=== PATIENT | male | born 1965 | race Caucasian/White ===

== ENCOUNTER 2017-12-30 19:08 | Inpatient (IN) | payer OTHER ==
[~2017-12-30 19:08] MED LIST: Lidocaine 1% PF 5 ML VIAL ONE; PROPOFOL 200 MG/20 ML VIAL ONE; Succinylcholine Chloride 20 MG/ML 10 ml SYRINGE FS ONE
[2017-12-30] MEDS ORDERED: Pantoprazole 40 MG VIAL ONE (19:27)
[2017-12-30] MEDS ORDERED: Octreotide Acetate 50 MCG/ML AMP ONE (19:27)
[2017-12-30] MEDS ORDERED: Pantoprazole 80 MG, Admixture Fee 1 EACH in Sodium Chloride 0.9% 100 ML IVPB SCH (19:30)
[2017-12-30] MEDS ORDERED: Octreotide Acetate 1,250 MCG in Sodium Chloride 0.9% 250 ML 250 ML IVPB SCH (19:30)
[2017-12-30 19:46] LABS: #Basophils 0.1 thou/uL (0.0-0.2); #Eosinphils 0.3 thou/uL (0.0-0.7); #Lymphocytes 2.9 thou/uL (1.20-3.40); #Monocytes 0.7 thou/uL (0.11-0.59); #Neutrophils 5.2 thou/uL (1.40-6.50); %Basophils 0.9 % (0.0-1.0); %Eosinophils 3.1 % (0.0-10.0); %Lymphocytes 31.2 % (21.0-51.0); %Monocytes 7.8 % (0.0-10.0); %Neutrophils 56.9 % (42.0-75.0); Hemoglobin 13.2 g/dL (14.0-18.0); Mean Corpuscular HGB CONC 35.3 g/dL (32.0-36.0); Mean Corpuscular Hemoglobin 33.5 pg (27.0-31.0); Mean Corpuscular Volume 94.8 fl (80.0-94.0); Mean Platelet Volume 7.7 fL (7.4-10.4); Platelet Count 137 thou/uL (130-400); RBC Distribution Width 13.4 % (11.5-14.5); Red Blood Cell (RBC) Count 3.95 mill/uL (4.70-6.10); White Blood Cell (WBC) Count 9.2 thou/uL (4.8-10.8)
[2017-12-30 19:59] LABS: INR-International Normal Ratio 1.3; PTT 25.8 SEC (22.9-36.1); Prothrombin Time 16.3 SEC (12.0-14.7)
[2017-12-30 20:11] LABS: ALT (SGPT) 18 U/L (8-55); AST (SGOT) 18 U/L (5-34); Albumin 3.4 g/dL (3.5-5.0); Alkaline Phosphatase 85 U/L (40-150); Anion Gap 11 mmol/L (10-20); BUN (Urea Nitrogen) 12 mg/dL (8.4-25.7); Bilirubin, Total 0.7 mg/dL (0.2-1.2); Calc. Creatinine Clearance 0 mL/min (70-130); Calcium 8.2 mg/dL (7.8-10.44); Carbon Dioxide 23 mmol/L (22-29); Chloride 105 mmol/L (98-107); Estimated GFR-MDRD Greater than 90; Globulin 2.1 g/dL (2.4-3.5); Glucose 277 mg/dL (70-105); Lipase 24 U/L (8-78); Potassium 3.6 mmol/L (3.5-5.1); Protein, Total 5.5 g/dL (6.0-8.3); Sodium 135 mmol/L (136-145)
[2017-12-30 20:14] LABS: Troponin I Less than 0.010 ng/mL (< 0.028)
[2017-12-30] MEDS ORDERED: Ethanolamine Oleate 5% 2 ml Ampule ONE ×2 (21:33→21:38)
[2017-12-30] MEDS ORDERED: Ondansetron PF 4 MG/2 ML Vial IVP PRN (21:35)
[2017-12-30] MEDS ORDERED: cefTRIAXone\\ROCEPHIN 1 GM in Sodium Chloride 0.9% 100 ML IVPB SCH (21:45)
[2017-12-30 22:11] LABS: #Basophils 0.1 thou/uL (0.0-0.2); #Eosinphils 0.1 thou/uL (0.0-0.7); #Lymphocytes 1.6 thou/uL (1.20-3.40); #Monocytes 0.8 thou/uL (0.11-0.59); #Neutrophils 9.3 thou/uL (1.40-6.50); %Basophils 0.6 % (0.0-1.0); %Eosinophils 1.2 % (0.0-10.0); %Lymphocytes 13.2 % (21.0-51.0); %Monocytes 7.1 % (0.0-10.0); %Neutrophils 77.9 % (42.0-75.0); Hemoglobin 12.4 g/dL (14.0-18.0); Mean Corpuscular HGB CONC 35.3 g/dL (32.0-36.0); Mean Corpuscular Hemoglobin 33.7 pg (27.0-31.0); Mean Corpuscular Volume 95.2 fl (80.0-94.0); Mean Platelet Volume 7.7 fL (7.4-10.4); Platelet Count 135 thou/uL (130-400); RBC Distribution Width 13.6 % (11.5-14.5); Red Blood Cell (RBC) Count 3.68 mill/uL (4.70-6.10); White Blood Cell (WBC) Count 11.9 thou/uL (4.8-10.8)
[2017-12-30 22:29] VITALS: BMI 21.3
[2017-12-30] MEDS ORDERED: Midazolam HCl 2 mg/2 ml Vial ONE (22:32)
[2017-12-30] MEDS ORDERED: Fentanyl 100 MCG/2 ML VIAL ONE (22:32)
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
[2017-12-30] MEDS: Sodium Chloride 0.9% 1,000 ML IV SCH (23:37)
[2017-12-30] MEDS: cefTRIAXone\\ROCEPHIN 1 GM, Syringe 0.4 ML in Sterile Water 9.6 ML SLOW IVP SCH (23:37)
[2017-12-30 23:51] LABS: Hemoglobin 10.8 g/dL (14.0-18.0)
--- NOTE | 2017-12-31 01:33 | CON ---
DATE OF CONSULTATION: 12/30/2017 REASON FOR CONSULTATION: Hematemesis. CONSULTING PHYSICIAN: Dr. Shepard. HISTORY OF PRESENT ILLNESS: The patient is a 52-year-old male with past medical history of hypertens ion, anxiety, diabetes, chronic viral hepatitis C genotype 1A, status post Harvoni and SVR, and cirrh osis complicated by esophageal varices, presenting with complaints of hematemesis. He states that he was in his usual state of health until earlier this evening when he, after finishing dinner, experie nced increased gastrointestinal upset and nausea. He subsequently went to the bathroom and threw up the remainder of his dinner plus gross blood. He immediately contacted EMS and was transferred to [facility] for evaluation. While in the emergency department, he had a further episode of fra nk blood emesis of approximately 5011-0511 mL of deepika blood. No other associated symptoms; however, he did endorse the appearance of bright red blood per rectum approximately 3 days ago, but he does e ndorse a history of hemorrhoids as well. On palpation of the anal orifice itself, he also noticed th at there was a bulge. He has not had any further bleeding since. He also endorses a solid black sto ol approximately 3 months ago, but that also did not recur. Upon review of the patient's chart, he was noted to have an upper GI bleed in late 2014 and underwent upper endoscopy with varices seen at that time. He was subsequently placed on nadolol as part of pr imary prophylaxis for variceal bleeding and was stable on this dose until approximately 8 months ago when he stopped this medication. Currently, denies any nausea, fevers, chills, abdominal pain, melen a, hematochezia, odynophagia, or dysphagia. REVIEW OF SYSTEMS: A 10-category review of systems was obtained with all responses negative except f or the pertinent positives as listed in the HPI. PAST MEDICAL HISTORY: As per HPI. PAST SURGICAL HISTORY: Right lower extremity ambzu-bkq-jwjl amputation. FAMILY HISTORY: Breast cancer (sister). SOCIAL HISTORY: He smokes approximately 1-2 packs per day. He is drinking approximately 2-3 beers 1 2 ounce beers weekly and has been occasionally using marijuana and CBD oil (cannabis extract). OUTPATIENT MEDICATIONS: None. ALLERGIES: No known drug allergies. PHYSICAL EXAMINATION: VITAL SIGNS: Pulse 99, blood pressure 126/70, respiratory rate 16, satting 99% on room air. GENERAL: The patient is lying in bed comfortably in no acute distress. Alert and oriented x4. NECK: Supple. No JVD noted. CARDIOVASCULAR: Regular rate and rhythm with slightly tachycardic rate. No discernible murmurs, gal lops, or rubs. RESPIRATORY: Clear to auscultation bilaterally with no wheezes or rales. ABDOMEN: Normoactive bowel sounds, soft, nondistended. Mild tenderness to palpation in the right lo wer quadrant. EXTREMITIES: Right lower extremity msvjs-hxt-ebbo amputation noted. No cyanosis, clubbing, or edema . LABORATORY DATA: CBC with a white blood cell count of 9.2, hemoglobin 13.2, hematocrit 37.4, platele ts 137. Chemistry with a sodium of 135, potassium 3.6, chloride 105, CO2 of 23, BUN 12, creatinine 0 .86, glucose 277, AST 18, ALT 18, alkaline phosphatase 85, total bilirubin 0.7, lipase 24. INR 1.3. MELD score calculated at 13. IMAGING STUDIES: No current GI imaging studies are available for review. ASSESSMENT AND PLAN: The patient is a 52-year-old male with past medical history of hypertension, an xiety, diabetes, chronic hepatitis C infection now status post treatment, and cirrhosis complicated b y esophageal varices, presenting with hematemesis. Hematemesis. The patient presenting with acute onset of deepika blood emesis with approximately 1500-2 000 mL of gross blood observed while in the ED. Given his history of cirrhosis, this is strongly con cerning for esophageal varix bleed. He had been on primary prophylaxis for variceal bleeding with na dolol 10 mg daily in the past, but subsequently stopped this 8 months ago due to not wanting to take the medication anymore. Currently, hemodynamically stable with borderline tachycardia and normotensi ve pressure. H and H is decreased from baseline, but also relatively stable comparatively. At this time, differential could include esophageal varix bleed, arteriovenous malfunction/Dieulafoy lesion, esophagitis, portal hypertensive gastropathy (unlikely), and/or malignancy (highly unlikely). RECOMMENDATIONS: 1. We would continue to trend H and H and transfuse as necessary to maintain an H and H of 7/21. 2. Agree with placement of patient on PPI and octreotide drips given upper active gastrointestinal b leeding. 3. We would place the patient on ceftriaxone 1 gram daily for antibiotic prophylaxis regarding upper gastrointestinal bleeding in the cirrhotic patient. 4. We would keep patient n.p.o. for now with urgent endoscopy later on this evening. We will continue to follow. Please call with any questions.
--- NOTE | 2017-12-31 02:14 | OP ---
DATE OF PROCEDURE: 12/30/2017 PROCEDURE: Esophagogastroduodenoscopy with band ligation. INDICATION: Hematemesis, cirrhosis with history of esophageal varices. DESCRIPTION OF PROCEDURE: After the risks and benefits of the procedure were explained to the patien t including risks of bleeding, infection, perforation, reactions to anesthesia and/or pain. Informed consent was obtained. The patient was then taken to the endoscopy suite where general anesthesia wa s administered via anesthesia support. The standard gastroscope was then advanced into the mouth wit h intubation of the esophagus, stomach and proximal small intestine with the findings listed below. The patient tolerated the procedure well with no immediate perioperative complications. FINDINGS: Duodenum: Normal appearing mucosa was seen in both the duodenal bulb and second portion of the duode num. There was no evidence of erosions, ulcerations, or mass lesions or active/recent bleeding. Stomach: A large amount of both clotted blood and retained food was seen in the gastric fundus and b josefina significantly limiting visualization of the gastric mucosa. Normal-appearing mucosa was seen in the distal body, antrum and incisura of the mucosa seen. There was no evidence of erosions, ulcerati ons, mass lesions or active/recent bleeding. The GE junction was obscured upon gastric retroflexion, so evaluation of gastric varices could not be made at this time. Esophagus: Normal-appearing mucosa was seen in the proximal and mid esophagus, large esophageal vari monet were seen in the distal esophagus with a fibrin clot with an adherent clot on top of it noted in the distal esophagus just proximal to the GE junction. There was no evidence of erosions, ulceration s, mass lesions or active bleeding at this site. With this being the most likely source of his hemat emesis, the gastroscope was then withdrawn from the patient and a Arcamed dairy hand was affixe d to the scope. The gastroscope was then advanced into the mouth with reintubation of the esophagus. Band ligation x4 was then performed in the distal esophagus including the fibrin clot with good hem ostasis achieved. There was no increase in bleeding post-procedure with all equipment removed at hayden t time. IMPRESSION: 1. Large esophageal varices seen in the distal esophagus with the presence of a small adherent clot overlying one of them being the most likely reason for his recent hematemesis, now status post band l igation x4. 2. Large amount of both clotted blood and retained food was seen in the gastric fundus and body sign ificantly limiting visualization of the gastric mucosa. Further sources of bleeding cannot be ruled out at this time in this particular location. 3. Incomplete visualization of the GE junction on retroflexion. Gastric varix determination cannot be performed at this time. RECOMMENDATIONS: 1. We transfer the patient to the ICU for continued monitoring for further episodes of hematemesis/G I bleeding. 2. We would continue to trend H&H and transfuse as necessary to maintain an H&H of 06/13. 3. We would continue PPI drip for the next 24 hours, then can transfer to 40 mg IV b.i.d. 4. We would continue the octreotide drip for a total duration of therapy of 72 hours. 5. W would keep patient n.p.o. for now with advancing patient to clear liquid diet if no further epi sodes of hematemesis and H&H is stable. 6. We would continue ceftriaxone 1 gram daily as part of prophylaxis for the patient with GI bleedin g and underlying comorbidities including cirrhosis. 7. Once hemodynamically stable, we would start patient on nadolol 10 mg daily as part of secondary p rophylaxis for variceal bleeding.
[2017-12-31] MEDS: Pantoprazole 80 MG in Sodium Chloride 0.9% 100 ML IVP SCH ×2 (02:18→17:14)
[2017-12-31 05:30] LABS: INR-International Normal Ratio 1.3; PTT 26.7 SEC (22.9-36.1); Prothrombin Time 16.2 SEC (12.0-14.7)
[2017-12-31 05:38] LABS: ALT (SGPT) 23 U/L (8-55); AST (SGOT) 20 U/L (5-34); Albumin 3.3 g/dL (3.5-5.0); Alkaline Phosphatase 63 U/L (40-150); Bilirubin, Direct 0.4 mg/dL (0.1-0.3); Bilirubin, Total 0.7 mg/dL (0.2-1.2); Protein, Total 5.1 g/dL (6.0-8.3)
[2017-12-31 05:40] LABS: Anion Gap 7 mmol/L (10-20); BUN (Urea Nitrogen) 11 mg/dL (8.4-25.7); Calc. Creatinine Clearance 104 mL/min (70-130); Calcium 7.5 mg/dL (7.8-10.44); Carbon Dioxide 23 mmol/L (22-29); Chloride 110 mmol/L (98-107); Estimated GFR-MDRD Greater than 90; Glucose 220 mg/dL (70-105); Potassium 4.3 mmol/L (3.5-5.1); Sodium 136 mmol/L (136-145)
[2017-12-31 05:56] LABS: #Eosinphils 0.1 thou/uL (0.0-0.7); #Lymphocytes 1.3 thou/uL (1.20-3.40); #Monocytes 0.5 thou/uL (0.11-0.59); #Neutrophils 7.7 thou/uL (1.40-6.50); %Basophils 0.1 % (0.0-1.0); %Eosinophils 0.7 % (0.0-10.0); %Lymphocytes 13.3 % (21.0-51.0); %Monocytes 4.9 % (0.0-10.0); Hemoglobin 10.9 g/dL (14.0-18.0); Mean Corpuscular HGB CONC 35.6 g/dL (32.0-36.0); Mean Corpuscular Hemoglobin 33.8 pg (27.0-31.0); Mean Corpuscular Volume 94.7 fl (80.0-94.0); Mean Platelet Volume 8.1 fL (7.4-10.4); PLT Morphology Comment Appears Decreased; Platelet Count 101 thou/uL (130-400); RBC Distribution Width 13.6 % (11.5-14.5); Red Blood Cell (RBC) Count 3.24 mill/uL (4.70-6.10); White Blood Cell (WBC) Count 9.5 thou/uL (4.8-10.8)
[2017-12-31] MEDS: Sodium Chloride 0.9% 1,000 ML IV SCH ×2 (08:05→17:14)
[2017-12-31] MEDS ORDERED: FLU VACC QS2017-18 36 mo. & older 0.5 ML SYRINGE IM ONE (09:00)
[2017-12-31 10:22] LABS: #Eosinphils 0.1 thou/uL (0.0-0.7); #Lymphocytes 1.5 thou/uL (1.20-3.40); #Monocytes 0.5 thou/uL (0.11-0.59); #Neutrophils 5.4 thou/uL (1.40-6.50); %Basophils 0.3 % (0.0-1.0); %Eosinophils 0.8 % (0.0-10.0); %Lymphocytes 19.8 % (21.0-51.0); %Monocytes 6.7 % (0.0-10.0); %Neutrophils 72.3 % (42.0-75.0); Hemoglobin 10.8 g/dL (14.0-18.0); Mean Corpuscular HGB CONC 35.3 g/dL (32.0-36.0); Mean Corpuscular Hemoglobin 33.7 pg (27.0-31.0); Mean Corpuscular Volume 95.3 fl (80.0-94.0); Mean Platelet Volume 7.8 fL (7.4-10.4); Platelet Count 91 thou/uL (130-400); RBC Distribution Width 13.8 % (11.5-14.5); Red Blood Cell (RBC) Count 3.21 mill/uL (4.70-6.10); White Blood Cell (WBC) Count 7.5 thou/uL (4.8-10.8)
--- NOTE | 2017-12-31 11:34 | PDOC.PN ---
- Subjective Encounter Start Date: 12/31/17 Encounter Start Time: 10:55 -: old records requested/rev Pt seen and examined chart reviewed in its entirety. This is my first visit with this patient Pt for EGD earlier, notes pending. no further bloody BM or vomiting since. Still NPO, awaiting GI recommendations. On protonix and Octreotide drips still. No F/C, no N/v/D/C at present, no CP or SOB 10 point ROS performed and neg for all systems except as per HPI - Objective Resuscitation Status: Resuscitation Status FULL:Full Resuscitation MAR Reviewed: Yes Vital Signs & Weight: Vital Signs (12 hours) Temp Pulse Resp BP Pulse Ox 12/31/17 11:26 99.0 F 88 19 119/85 97 12/31/17 08:00 99.0 F 95 16 97 12/31/17 07:00 99.0 F 95 16 129/84 97 12/31/17 06:40 96 18 129/84 98 12/31/17 03:00 98.4 F Weight Weight 144 lb 6.444 oz Most Recent Monitor Data Heart Rate from ECG 91 NIBP 133/91 NIBP BP-Mean 104 Respiration from ECG 21 SpO2 97 I&O: 12/30/17 12/31/17 01/01/18 06:59 06:59 06:59 Intake Total 717 Output Total 850 Balance -133 Result Diagrams: 12/31/17 09:43 12/31/17 04:55 Radiology Reviewed by me: Yes EKG Reviewed by me: Yes Phys Exam - Physical Examination Constitutional: NAD HEENT: PERRLA, moist MMs, sclera anicteric, oral pharynx no lesions Neck: no nodes, no JVD, supple, full ROM Respiratory: no wheezing, no rales, no rhonchi, clear to auscultation bilateral Cardiovascular: RRR, no significant murmur, no rub Gastrointestinal: soft, non-tender, no distention, positive bowel sounds Musculoskeletal: no edema, pulses present Neurological: non-focal, normal sensation, moves all 4 limbs Lymphatic: no nodes Psychiatric: normal affect, A&O x 3 Skin: no rash, normal turgor, cap refill <2 seconds Dx/Plan - Plan cont current plan of care, DVT proph w/SCDs * . follow up on GI recs, watch h/H, feed when okay with GI, stop drips when okay with GI
[2017-12-31 15:41] LABS: #Eosinphils 0.1 thou/uL (0.0-0.7); #Lymphocytes 1.8 thou/uL (1.20-3.40); #Monocytes 0.6 thou/uL (0.11-0.59); #Neutrophils 4.4 thou/uL (1.40-6.50); %Basophils 0.4 % (0.0-1.0); %Eosinophils 1.9 % (0.0-10.0); %Lymphocytes 25.7 % (21.0-51.0); %Monocytes 8.9 % (0.0-10.0); %Neutrophils 63.2 % (42.0-75.0); Hemoglobin 10.5 g/dL (14.0-18.0); Mean Corpuscular HGB CONC 35.7 g/dL (32.0-36.0); Mean Corpuscular Hemoglobin 34.1 pg (27.0-31.0); Mean Corpuscular Volume 95.4 fl (80.0-94.0); Mean Platelet Volume 7.2 fL (7.4-10.4); Platelet Count 84 thou/uL (130-400); RBC Distribution Width 13.6 % (11.5-14.5); Red Blood Cell (RBC) Count 3.09 mill/uL (4.70-6.10); White Blood Cell (WBC) Count 6.9 thou/uL (4.8-10.8)
[2017-12-31] MEDS: Octreotide Acetate 1,250 MCG in Sodium Chloride 0.9% 250 ML 250 ML IVPB SCH (17:13)
--- NOTE | 2017-12-31 17:45 | PRG ---
DATE OF SERVICE: 12/31/2017 SUBJECTIVE: Mr. Moss has had an uneventful day today. His last bowel movement was early yesterday morning soon after his upper endoscopy. He has passed no melena or hematochezia. He has no abdominal pain or chest pain. He has a little bit of a sore throat. He just started on clear liquid diet and he is tolerating this well. He has remained hemodynamically stable, continuing on the octreotide drip. OBJECTIVE: VITAL SIGNS: Temperature 98.0, pulse 83, blood pressure 138/89, 98% oxygen saturation on room air. GENERAL: No acute distress. HEART: Regular rate and rhythm. LUNGS: Clear to auscultation bilaterally. ABDOMEN: Soft and nontender to palpation. EXTREMITIES: No peripheral edema. LABORATORY STUDIES: Sodium 136, potassium 4.3, BUN 11, creatinine 0.77, glucose 220. Total bilirubin 0.7, alkaline phosphatase 63, AST 20, ALT 23, albumin 3.3. INR 1.3. WBC 6.9; hemoglobin 10.5, stable from last night; platelets 84. ASSESSMENT AND PLAN: 1. Esophageal varices with hemorrhage, status post esophagogastroduodenoscopy with variceal band ligation last night on 12/30/[address] Tinoco. 2. Acute blood loss anemia, stabilized. 3. Portal hypertension. 4. Cirrhosis secondary to alcohol use. 5. History of hepatitis C, successfully treated with SVR back in 2015. There has been no further evidence of overt bleeding since his upper endoscopy yesterday. Standard of care would be to continue the octreotide drip for 72 hours following EGD, which would be through early Friday morning. Advance diet to full liquids tonight, and if doing well with no further evidence of bleeding tomorrow, his diet could be advanced further as tolerated. He will need to be discharged back on a nonselective beta willy such as nadolol, as he had been off this for several months. This will be secondary prophylaxis against bleeding. We will also need to arrange for repeat EGD in 2-3 weeks with repeat variceal banding and have repeated sessions until varices have been banded to obliteration. I would keep him on the antibiotics while he is in the hospital. Protonix can be switched to 40 mg IV b.i.d. while in the hospital. MTDD
[2017-12-31 21:35] LABS: #Eosinphils 0.1 thou/uL (0.0-0.7); #Lymphocytes 1.6 thou/uL (1.20-3.40); #Monocytes 0.6 thou/uL (0.11-0.59); #Neutrophils 3.7 thou/uL (1.40-6.50); %Basophils 0.5 % (0.0-1.0); %Eosinophils 2.2 % (0.0-10.0); %Lymphocytes 26.9 % (21.0-51.0); %Monocytes 9.6 % (0.0-10.0); %Neutrophils 60.8 % (42.0-75.0); Mean Corpuscular HGB CONC 34.8 g/dL (32.0-36.0); Mean Corpuscular Hemoglobin 33.2 pg (27.0-31.0); Mean Corpuscular Volume 95.5 fl (80.0-94.0); Mean Platelet Volume 7.5 fL (7.4-10.4); Platelet Count 82 thou/uL (130-400); RBC Distribution Width 13.6 % (11.5-14.5); Red Blood Cell (RBC) Count 3.01 mill/uL (4.70-6.10); White Blood Cell (WBC) Count 6.1 thou/uL (4.8-10.8)
[2018-01-01] MEDS: cefTRIAXone\\ROCEPHIN 1 GM, Syringe 0.4 ML in Sterile Water 9.6 ML SLOW IVP SCH ×2 (00:14→23:25)
[2018-01-01] MEDS: Pantoprazole 80 MG in Sodium Chloride 0.9% 100 ML IVP SCH (01:13)
[2018-01-01] MEDS: Sodium Chloride 0.9% 1,000 ML IV SCH ×2 (03:34→17:28)
[2018-01-01 05:52] LABS: #Eosinphils 0.1 thou/uL (0.0-0.7); #Lymphocytes 1.1 thou/uL (1.20-3.40); #Monocytes 0.5 thou/uL (0.11-0.59); #Neutrophils 3.4 thou/uL (1.40-6.50); %Basophils 0.9 % (0.0-1.0); %Eosinophils 2.8 % (0.0-10.0); %Lymphocytes 21.7 % (21.0-51.0); %Monocytes 9.4 % (0.0-10.0); %Neutrophils 65.3 % (42.0-75.0); Hemoglobin 10.1 g/dL (14.0-18.0); Mean Corpuscular HGB CONC 35.4 g/dL (32.0-36.0); Mean Corpuscular Hemoglobin 33.7 pg (27.0-31.0); Mean Corpuscular Volume 95.1 fl (80.0-94.0); Mean Platelet Volume 7.9 fL (7.4-10.4); Platelet Count 83 thou/uL (130-400); RBC Distribution Width 13.7 % (11.5-14.5); Red Blood Cell (RBC) Count 3.01 mill/uL (4.70-6.10); White Blood Cell (WBC) Count 5.1 thou/uL (4.8-10.8)
[2018-01-01 06:04] LABS: Anion Gap 9 mmol/L (10-20); BUN (Urea Nitrogen) 6 mg/dL (8.4-25.7); Calc. Creatinine Clearance 108 mL/min (70-130); Calcium 7.8 mg/dL (7.8-10.44); Carbon Dioxide 24 mmol/L (22-29); Chloride 109 mmol/L (98-107); Estimated GFR-MDRD Greater than 90; Glucose 170 mg/dL (70-105); Magnesium 1.8 mg/dL (1.6-2.6); Potassium 3.8 mmol/L (3.5-5.1); Sodium 138 mmol/L (136-145)
[2018-01-01 10:03] LABS: #Eosinphils 0.1 thou/uL (0.0-0.7); #Lymphocytes 1.1 thou/uL (1.20-3.40); #Monocytes 0.5 thou/uL (0.11-0.59); #Neutrophils 3.7 thou/uL (1.40-6.50); %Basophils 0.4 % (0.0-1.0); %Eosinophils 2.6 % (0.0-10.0); %Lymphocytes 19.7 % (21.0-51.0); %Monocytes 8.9 % (0.0-10.0); %Neutrophils 68.5 % (42.0-75.0); Hemoglobin 10.2 g/dL (14.0-18.0); Mean Corpuscular HGB CONC 35.7 g/dL (32.0-36.0); Mean Corpuscular Volume 95.1 fl (80.0-94.0); Mean Platelet Volume 7.3 fL (7.4-10.4); Platelet Count 75 thou/uL (130-400); RBC Distribution Width 13.7 % (11.5-14.5); Red Blood Cell (RBC) Count 2.99 mill/uL (4.70-6.10); White Blood Cell (WBC) Count 5.4 thou/uL (4.8-10.8)
[2018-01-01] MEDS ORDERED: Pantoprazole 40 MG VIAL IVP SCH (10:30)
--- NOTE | 2018-01-01 11:51 | PRG ---
DATE OF SERVICE: 01/01/2018 SUBJECTIVE: Mr. Moss is doing fine. He is now eating a regular diet for lunch and is tolerating t his without complaint. No bowel movements over the past day. Certainly, no melena. Hemoglobin is s table. He has been hemodynamically stable. OBJECTIVE: VITAL SIGNS: Temperature 97.7, pulse 81, blood pressure 139/74, 98% oxygen saturation on room air. GENERAL: No acute distress, lying in bed comfortably, eating lunch. HEART: Regular rate and rhythm. LUNGS: Clear to auscultation bilaterally. ABDOMEN: Soft and nontender to palpation. EXTREMITIES: No peripheral edema. LABORATORY STUDIES: Hemoglobin stable at 10.2, WBC 5.4, platelets 75,000. Sodium 138, potassium 3.8 , BUN down to 6, creatinine 0.74. ASSESSMENT AND PLAN: 1. Esophageal varices with hemorrhage, status post banding [address] Tinoco. 2. Portal hypertension. 3. Cirrhosis secondary to alcohol. 4. Acute blood loss anemia, stable. Continue with the octreotide drip through Friday morning. He is advancing his diet well. Okay to transfer to a general medical floor from a GI perspective. Aga in, upon discharge, he needs to be restarted back on a nonselective beta willy.
--- NOTE | 2018-01-01 12:12 | PDOC.PN ---
- Subjective Encounter Start Date: 01/01/18 Encounter Start Time: 10:20 Pt without fiurther bleeding since EGD and banding. GI wantws to stay on Octreotide for 72 hour post EGD - until early AM 01/03. No F/c, no n/V/D/c, no CP or sOB ricardo diet, to advanc eper GI. Will transition to IV protoinix q 12 off of drip 12 point ROs performed aned neg for all systems except as per HPI - Objective Resuscitation Status: Resuscitation Status FULL:Full Resuscitation MAR Reviewed: Yes Vital Signs & Weight: Vital Signs (12 hours) Temp Pulse Resp BP BP Pulse Ox 01/01/18 07:54 97.7 F 81 16 98 01/01/18 07:50 97.7 F 81 16 139/74 98 01/01/18 03:35 98.2 F 80 18 122/82 98 Weight Weight 144 lb 6.444 oz Most Recent Monitor Data Heart Rate from ECG 91 NIBP 133/91 NIBP BP-Mean 104 Respiration from ECG 21 SpO2 97 I&O: 12/31/17 01/01/18 01/02/18 06:59 06:59 06:59 Intake Total 717 2410 Output Total 850 2925 800 Balance -133 -515 -800 Result Diagrams: 01/01/18 09:41 01/01/18 05:07 EKG Reviewed by me: Yes Phys Exam - Physical Examination Constitutional: NAD HEENT: PERRLA, moist MMs, sclera anicteric, oral pharynx no lesions Neck: no nodes, no JVD, supple, full ROM Respiratory: no wheezing, no rales, no rhonchi, clear to auscultation bilateral Cardiovascular: RRR, no significant murmur, no rub Gastrointestinal: soft, non-tender, no distention, positive bowel sounds Musculoskeletal: no edema, pulses present Neurological: non-focal, normal sensation, moves all 4 limbs Lymphatic: no nodes Psychiatric: normal affect, A&O x 3 Skin: no rash, normal turgor, cap refill <2 seconds Dx/Plan - Plan cont current plan of care, out of bed/ambulate * .
[2018-01-01 15:54] LABS: #Eosinphils 0.1 thou/uL (0.0-0.7); #Lymphocytes 1.2 thou/uL (1.20-3.40); #Monocytes 0.6 thou/uL (0.11-0.59); %Basophils 0.6 % (0.0-1.0); %Eosinophils 2.5 % (0.0-10.0); %Lymphocytes 20.4 % (21.0-51.0); %Neutrophils 66.6 % (42.0-75.0); Mean Corpuscular HGB CONC 35.9 g/dL (32.0-36.0); Mean Corpuscular Hemoglobin 34.1 pg (27.0-31.0); Mean Corpuscular Volume 94.8 fl (80.0-94.0); Mean Platelet Volume 7.7 fL (7.4-10.4); Platelet Count 81 thou/uL (130-400); RBC Distribution Width 13.5 % (11.5-14.5); Red Blood Cell (RBC) Count 2.95 mill/uL (4.70-6.10); White Blood Cell (WBC) Count 5.9 thou/uL (4.8-10.8)
[2018-01-01] MEDS: Pantoprazole 40 MG VIAL IVP SCH (20:03)
[2018-01-01 21:55] LABS: #Eosinphils 0.2 thou/uL (0.0-0.7); #Lymphocytes 1.3 thou/uL (1.20-3.40); #Monocytes 0.7 thou/uL (0.11-0.59); #Neutrophils 4.5 thou/uL (1.40-6.50); %Basophils 0.7 % (0.0-1.0); %Eosinophils 2.5 % (0.0-10.0); %Lymphocytes 19.4 % (21.0-51.0); %Monocytes 9.8 % (0.0-10.0); %Neutrophils 67.6 % (42.0-75.0); Hemoglobin 10.4 g/dL (14.0-18.0); Mean Corpuscular HGB CONC 35.5 g/dL (32.0-36.0); Mean Corpuscular Hemoglobin 33.5 pg (27.0-31.0); Mean Corpuscular Volume 94.4 fl (80.0-94.0); Mean Platelet Volume 7.1 fL (7.4-10.4); Platelet Count 89 thou/uL (130-400); RBC Distribution Width 13.4 % (11.5-14.5); Red Blood Cell (RBC) Count 3.09 mill/uL (4.70-6.10); White Blood Cell (WBC) Count 6.7 thou/uL (4.8-10.8)
[2018-01-02] MEDS: Sodium Chloride 0.9% 1,000 ML IV SCH ×3 (02:59→21:05)
[2018-01-02 04:37] LABS: #Eosinphils 0.1 thou/uL (0.0-0.7); #Monocytes 0.4 thou/uL (0.11-0.59); #Neutrophils 2.4 thou/uL (1.40-6.50); %Basophils 0.7 % (0.0-1.0); %Eosinophils 3.2 % (0.0-10.0); %Lymphocytes 25.6 % (21.0-51.0); %Monocytes 10.5 % (0.0-10.0); Hemoglobin 9.3 g/dL (14.0-18.0); Mean Corpuscular Hemoglobin 33.9 pg (27.0-31.0); Mean Corpuscular Volume 94.2 fl (80.0-94.0); Mean Platelet Volume 7.7 fL (7.4-10.4); Platelet Count 71 thou/uL (130-400); RBC Distribution Width 13.4 % (11.5-14.5); Red Blood Cell (RBC) Count 2.74 mill/uL (4.70-6.10)
[2018-01-02 04:50] LABS: Anion Gap 8 mmol/L (10-20); BUN (Urea Nitrogen) 7 mg/dL (8.4-25.7); Calc. Creatinine Clearance 96 mL/min (70-130); Calcium 7.9 mg/dL (7.8-10.44); Carbon Dioxide 27 mmol/L (22-29); Chloride 108 mmol/L (98-107); Estimated GFR-MDRD Greater than 90; Glucose 188 mg/dL (70-105); Magnesium 1.7 mg/dL (1.6-2.6); Potassium 3.8 mmol/L (3.5-5.1); Sodium 139 mmol/L (136-145)
--- NOTE | 2018-01-02 08:50 | PRG ---
DATE OF SERVICE: 01/01/2018 GASTROINTESTINAL INPATIENT DAILY PROGRESS NOTE SUBJECTIVE: Mr. Moss has had an uneventful day and night. No bowel movement, but he is passing ga s. He is not nauseated. There is no abdominal pain, no evidence of recurrent bleeding. He has been hemodynamically stable. Continues on the octreotide drip. OBJECTIVE: VITAL SIGNS: Temperature 98.3, pulse 88, blood pressure 143/80, 100% oxygen saturation on room air. GENERAL: No acute distress. HEART: Regular rate and rhythm. LUNGS: Clear to auscultation bilaterally. ABDOMEN: Soft, nontender. EXTREMITIES: No peripheral edema. LABORATORY STUDIES: Sodium 139, potassium 3.8, BUN 7, creatinine 0.83. WBC 4.0, hemoglobin 9.3, randolph telets 71. ASSESSMENT AND PLAN: 1. Esophageal variceal hemorrhage, status post banding [address] Tinoco. 2. Portal hypertension. 3. Cirrhosis secondary to alcohol. 4. Acute blood loss anemia, stable. There has been no further evidence of bleeding since his EGD. Continue with octreotide drip through tomorrow morning. He is tolerating his diet. Anticipate if he is still doing well tomorrow morning with no further evidence of bleeding, he could potentially be discharged home. He does need to be re started back on a nonselective beta willy on discharge. I will plan to follow up with him in the n ext 2-3 weeks for repeat EGD with variceal banding.
[2018-01-02] MEDS: Octreotide Acetate 1,250 MCG in Sodium Chloride 0.9% 250 ML 250 ML IVPB SCH (09:08)
[2018-01-02] MEDS: Pantoprazole 40 MG VIAL IVP SCH ×2 (09:08→21:11)
--- NOTE | 2018-01-02 14:01 | PDOC.PN ---
- Subjective Encounter Start Date: 01/02/18 Encounter Start Time: 08:45 no [id number], butno BM since EGD. No F/C, no N/V/d/C. on octreotide until tomorrow AM, plan to discharge tomorrow. GI following. 10 point ROS performed and neg for all except as per HPI - Objective Resuscitation Status: Resuscitation Status FULL:Full Resuscitation MAR Reviewed: Yes Vital Signs & Weight: Vital Signs (12 hours) Temp Pulse Resp BP BP Pulse Ox 01/02/18 11:20 98.3 F 78 18 123/75 99 01/02/18 07:20 98.3 F 88 18 01/02/18 04:19 98.3 F 88 18 143/80 H 100 01/02/18 03:57 98.3 F 82 18 139/89 97 Weight Weight 144 lb 6.444 oz Most Recent Monitor Data Heart Rate from ECG 91 NIBP 133/91 NIBP BP-Mean 104 Respiration from ECG 21 SpO2 97 I&O: 01/01/18 01/02/18 01/03/18 06:59 06:59 06:59 Intake Total 2410 4179 Output Total 2925 3300 Balance -515 879 Result Diagrams: 01/02/18 03:58 01/02/18 03:58 Phys Exam - Physical Examination Constitutional: NAD HEENT: PERRLA, moist MMs, sclera anicteric, oral pharynx no lesions Neck: no nodes, no JVD, supple, full ROM Respiratory: no wheezing, no rales, no rhonchi, clear to auscultation bilateral Cardiovascular: RRR, no significant murmur, no rub Gastrointestinal: soft, non-tender, no distention, positive bowel sounds Musculoskeletal: no edema, pulses present Neurological: non-focal, normal sensation, moves all 4 limbs Lymphatic: no nodes Psychiatric: normal affect, A&O x 3 Skin: no rash, normal turgor, cap refill <2 seconds Dx/Plan (1) Esophageal varices in cirrhosis Code(s): K74.60 - UNSPECIFIED CIRRHOSIS OF LIVER; I85.10 - SECONDARY ESOPHAGEAL VARICES WITHOUT BLEEDING Status: Acute (2) Acute upper GI bleeding Code(s): K92.2 - GASTROINTESTINAL HEMORRHAGE, UNSPECIFIED Status: Acute (3) Acute blood loss anemia Code(s): D62 - ACUTE POSTHEMORRHAGIC ANEMIA Status: Acute (4) Cirrhosis Code(s): K74.60 - UNSPECIFIED CIRRHOSIS OF LIVER Status: Acute (5) Hepatitis C Code(s): B19.20 - UNSPECIFIED VIRAL HEPATITIS C WITHOUT HEPATIC COMA Status: Acute (6) Alcohol abuse Code(s): F10.10 - ALCOHOL ABUSE, UNCOMPLICATED Status: Acute - Plan * . joaquin de octreotide until tomorrow AM, plan to discharge tomorrow. AM CBC ordered
[2018-01-02] MEDS: cefTRIAXone\\ROCEPHIN 1 GM, Syringe 0.4 ML in Sterile Water 9.6 ML SLOW IVP SCH (23:12)
[2018-01-03] MEDS: Sodium Chloride 0.9% 1,000 ML IV SCH (05:44)
[2018-01-03 05:54] LABS: #Eosinphils 0.1 thou/uL (0.0-0.7); #Lymphocytes 0.9 thou/uL (1.20-3.40); #Monocytes 0.4 thou/uL (0.11-0.59); #Neutrophils 2.4 thou/uL (1.40-6.50); %Basophils 0.5 % (0.0-1.0); %Monocytes 11.3 % (0.0-10.0); %Neutrophils 61.3 % (42.0-75.0); Hemoglobin 9.6 g/dL (14.0-18.0); Mean Corpuscular Hemoglobin 34.3 pg (27.0-31.0); Mean Corpuscular Volume 95.4 fl (80.0-94.0); Mean Platelet Volume 7.6 fL (7.4-10.4); Platelet Count 85 thou/uL (130-400); RBC Distribution Width 13.7 % (11.5-14.5); White Blood Cell (WBC) Count 3.9 thou/uL (4.8-10.8)
[2018-01-03] MEDS: Pantoprazole 40 MG VIAL IVP SCH (09:27)
[2018-01-03] MEDS ORDERED: Nadolol 40 MG TAB PO SCH (10:15)
[2018-01-03 11:44] VITALS: BP 154/91; TEMP 98.2
--- NOTE | 2018-01-05 09:51 | DIS ---
DATE OF ADMISSION: 12/30/2017 DATE OF DISCHARGE: 01/03/2018 DISCHARGE DIAGNOSES: 1. Upper gastrointestinal bleed. 2. Acute blood loss anemia. 3. Cirrhosis. 4. Esophageal varices. 5. Hepatitis C. 6. Ongoing alcohol abuse. CONSULTATIONS: Gastroenterology, Dr. Rodriguez Burciaga and Dr. Eloy Tinoco. PROCEDURES: EGD by Dr. Tinoco on 12/30/2017. HISTORY AND PHYSICAL: Mr. Moss is a 52-year-old gentleman with the above history who presented to the emergency department on the day of admission for complaints of GI bleeding and vomiting blood. Workup in the emergency department showed hemoglobin of 13.2, but did have known varices. We subsequently called for admit. HOSPITAL COURSE: Patient was seen and examined by Dr. Sharma and placed in inpatient status to the ICU. GI was consulted and the patient was started on octreotide and Protonix. The patient was seen by Gastroenterology and scheduled for EGD the same night. He did go for EGD, which shows large esophageal varices in the distal esophagus with the presence of a small adherent clot likely the source and status post band ligation x4. The patient had no further bleeding during the stay. After 72 hours of octreotide, he had no further bleeding. His H and H were stable. He was stable for discharge out of the hospital. The patient was seen and examined on the day of discharge. Discharge plan and disposition was discussed with the patient face to face at bedside. DISCHARGE MEDICATIONS: Nadolol 20 mg p.o. daily, new prescription. DISCHARGE ACTIVITY: As tolerated. DISCHARGE DIET: Heart healthy diet recommended. DISCHARGE CONDITION: Stable. DISPOSITION: Discharged home via private vehicle. Followup appointment with Dr. Tinoco in 2 weeks. Primary care physician to establish, Dr. Schwarz within a week. [facility]
--- NOTE | 2018-01-31 15:56 | EKG ---
Test Reason : Blood Pressure : / mmHG Vent. Rate : 120 BPM Atrial Rate : 120 BPM P-R Int : 128 ms QRS Dur : 082 ms QT Int : 328 ms P-R-T Axes : 081 048 087 degrees QTc Int : 463 ms Sinus tachycardia Nonspecific ST and T wave abnormality Abnormal ECG Confirmed by STEVEN BARBOSA, HOLLY ([id number]), purchasing expeditor RAFITA NEWSOME ([id number]) on 01/31/2018 3:55:45 PM Referred By: Confirmed By:HOLLY HARRIS MD
== END 2018-01-03 11:55 | disposition home or self-care (01) | DRG 432 ==
LOC: ERS 19:08 → CCU 20:40 → IMCU/EMU 12-31 06:44 → T4-A 01-01 18:22
PROVIDERS: ADMIT Internal Medicine; ATTEND Internal Medicine
PROC: 06L38CZ Occlusion of Esophageal Vein with Extraluminal Device, Via Natural or Artificial Opening Endoscopic (ICD-10-PCS; principal; 2017-12-30)
DX: K70.30 Alcoholic cirrhosis of liver without ascites (principal); I85.11 Secondary esophageal varices with bleeding; K92.0 Hematemesis; K76.6 Portal hypertension; D62 Acute posthemorrhagic anemia; E11.9 Type 2 diabetes mellitus without complications; F10.10 Alcohol abuse, uncomplicated; Z91.14 Patient's other noncompliance with medication regimen; Z89.511 Acquired absence of right leg below knee; Z86.19 Personal history of other infectious and parasitic diseases; F41.9 Anxiety disorder, unspecified; F17.210 Nicotine dependence, cigarettes, uncomplicated; I10 Essential (primary) hypertension
CPT/HCPCS: 36415; 36430; 80048; 80053; 80076; 83690; 83735; 84484; 85025; 85610; 85730; 86850; 86900; 86901; 93005; 96365; 96366; 96368; 96376; A4216; C9113; J0696; J1430; J2001; J2250; J2354; J2405; J2704; J3010; J7050

== ENCOUNTER 2018-02-03 09:15 | Day surgery (SDC) | payer OTHER ==
[2018-02-02 12:09] VITALS: BMI 21.5
--- NOTE | 2018-02-03 14:49 | OP ---
DATE OF PROCEDURE: 02/03/2018 GI ENDOSCOPY NOTE SURGEON: Rodriguez Burciaga M.D. ORDER TAKERS SUPERVISOR SURGEON: None. PROCEDURE: Esophagogastroduodenoscopy with variceal band ligation. INDICATION: Esophageal varices with recent bleeding, status post banding last month. This is repeat EGD for the purposes of repeat variceal band ligation as secondary prophylaxis against rebleeding. MEDICATIONS: See anesthesia record. FINDINGS: After discussion of the risks, benefits, and alternatives of the procedure, informed conse nt was obtained and witnessed. Pre-endoscopic cardiopulmonary examination was satisfactory. Timeout was performed before sedation was achieved. Sedation was achieved with anesthesia assistance in the endoscopy unit. A Pentax adult upper endoscope was placed into the oropharynx and passed through th e cricopharyngeus under direct visualization. The proximal and mid esophageal mucosa appeared normal . In the distal esophagus, there were a couple of trunks of large esophageal varices. This had some scarring associated with his recent variceal banding procedure. There were no high-risk stigmata of recent bleeding. The endoscope was advanced through the GE junction was at 40 cm and into the stoma ch. Forward and retroflexed views of the entire gastric mucosa were obtained. There were no gastric varices visualized. There is diffuse portal hypertensive gastropathy with no evidence of hemorrhage . The endoscope was advanced through the pylorus and into the first and second portions of the duode num, which appear normal. At this point, the endoscope was withdrawn and the variceal band ligation kit was applied. The esophagus was then reintubated. I placed 3 bands to the varices in the distal esophagus. At this point, the endoscope was removed and the procedure was complete. The patient ricardo erated the procedure well. There were no immediate post-procedure complications. IMPRESSION: 1. Distal esophageal varices, status post banding x3. 2. No evidence of gastric varices. 3. Diffuse portal hypertensive gastropathy. RECOMMENDATIONS: 1. Continue nadolol. 2. We will plan to repeat EGD in 4-6 weeks for repeat variceal banding. We will plan to continue th is until varices have been banded to obliteration. 3. Clear liquid diet for the rest of the day and then advance diet tomorrow.
== END 2018-02-03 14:36 | disposition home or self-care (01) ==
LOC: SDC 09:15
PROVIDERS: ATTEND Internal Medicine
PROC: 06L38CZ Occlusion of Esophageal Vein with Extraluminal Device, Via Natural or Artificial Opening Endoscopic (ICD-10-PCS; principal; 2018-02-03)
DX: I85.00 Esophageal varices without bleeding (principal); K76.6 Portal hypertension; K31.89 Other diseases of stomach and duodenum; K70.30 Alcoholic cirrhosis of liver without ascites; Z79.899 Other long term (current) drug therapy; Z98.890 Other specified postprocedural states; Z87.891 Personal history of nicotine dependence

== ENCOUNTER 2018-04-10 06:11 | Day surgery (SDC) | payer OTHER ==
[2018-04-09 08:48] VITALS: BMI 21.8
--- NOTE | 2018-04-10 13:30 | OP ---
DATE OF PROCEDURE: 04/10/2018 SURGEON: Rodriguez Burciaga M.D. HOOP MACHINE OPERATOR SURGEON: None. PROCEDURE: Esophagogastroduodenoscopy with biopsies. INDICATION: A 52-year-old man with a history of bleeding from esophageal varices, status post band ligation on 12/30/2017 and more recently on 2017. MEDICATIONS: See anesthesia record. FINDINGS: After discussion of the risks, benefits and alternatives of the procedure, informed consent was obtained and witnessed. Pre-endoscopic cardiopulmonary examination was satisfactory. Timeout was performed before sedation was achieved. Sedation was achieved with anesthesia assistance in the endoscopy unit. A Pentax adult upper endoscope was placed into the oropharynx and passed through the cricopharyngeus under direct visualization. There were white plaques and exudates along the entire length of the esophagus. This was suspicious for possible Itzel esophagitis. In the distal esophagus, there are a couple of grade I esophageal varices, but these flattened out completely with insufflation. There were no high risk stigmata for bleeding. There was some scarring in the area consistent with prior variceal band ligation. There was nothing further to band on this exam. The endoscope was passed forward into the stomach. Forward and retroflexed views of the entire gastric mucosa were obtained. There is diffuse moderate portal hypertensive gastropathy as visualized before. No evidence of gastric varices. The endoscope was passed through the pylorus and into the first and second portions of the duodenum which appeared normal. The endoscope was withdrawn back into the esophagus. Biopsies were obtained from the mid and upper esophagus to rule out Itzel esophagitis. The endoscope was then completely withdrawn and the patient allowed to recover. The patient tolerated the procedure well. There were no immediate post-procedure complications. IMPRESSION: 1. Diffuse white plaques throughout the esophagus, suspicious for possible Itzel esophagitis, biopsied. 2. Distal grade I esophageal varices with no high risk stigmata. The varices flattened out completely with air insufflation. Nothing to band on this examination. 3. Portal hypertensive gastropathy. RECOMMENDATIONS: 1. Follow up pathology on the esophageal biopsies. 2. The patient needs to continue his nadolol and secondary prophylaxis against variceal bleeding. 3. Repeat EGD for variceal screening in 1 year. 4. We will have him follow up in clinic at a 3-month interval or sooner if needed. [facility]
[2018-04-10] MEDS ORDERED: PHENYLEPHRINE-NS 100 MCG/ML 10 ML SYRINGE ONE (15:08)
[2018-04-10] MEDS ORDERED: Lidocaine 1% PF 5 ML VIAL ONE (15:08)
[2018-04-10] MEDS ORDERED: PROPOFOL 200 MG/20 ML VIAL ONE (15:08)
== END 2018-04-10 09:25 | disposition home or self-care (01) ==
LOC: SDC 06:11
PROVIDERS: ATTEND Internal Medicine
PROC: 0DB18ZX Excision of Upper Esophagus, Via Natural or Artificial Opening Endoscopic, Diagnostic (ICD-10-PCS; principal; 2018-04-10)
DX: K20.9 Esophagitis, unspecified (principal); K76.6 Portal hypertension; K31.89 Other diseases of stomach and duodenum; I85.10 Secondary esophageal varices without bleeding; Z79.899 Other long term (current) drug therapy
CPT/HCPCS: 88305; 88312; 88313; J2001; J2704

== ENCOUNTER 2019-10-16 04:21 | Emergency (ER) | payer OTHER ==
[2019-10-16] MEDS ORDERED: Promethazine HCl 25 MG/ML VIAL ONE (04:41)
[2019-10-16 05:24] LABS: Hemoglobin 14.7 g/dL (14.0-18.0); Mean Corpuscular HGB CONC 35.6 g/dL (32.0-36.0); Mean Corpuscular Hemoglobin 32.5 pg (27.0-31.0); Mean Corpuscular Volume 91.3 fL (78.0-98.0); RBC Distribution Width 12.4 % (11.5-14.5); Red Blood Cell (RBC) Count 4.53 mill/uL (4.70-6.10); White Blood Cell (WBC) Count 18.2 thou/uL (4.8-10.8)
[2019-10-16 05:27] LABS: ALT (SGPT) 14 U/L (8-55); AST (SGOT) 13 U/L (5-34); Albumin 3.3 g/dL (3.5-5.0); Alkaline Phosphatase 108 U/L (40-110); Anion Gap 12 mmol/L (10-20); BUN (Urea Nitrogen) 18 mg/dL (8.4-25.7); Bilirubin, Total 2.1 mg/dL (0.2-1.2); Calc. Creatinine Clearance 0 mL/min (70-130); Calcium 8.8 mg/dL (7.8-10.44); Carbon Dioxide 25 mmol/L (22-29); Chloride 92 mmol/L (98-107); Estimated GFR-MDRD 89; Globulin 3.1 g/dL (2.4-3.5); Glucose 305 mg/dL (70-105); Lipase 13 U/L (8-78); Potassium 3.3 mmol/L (3.5-5.1); Protein, Total 6.4 g/dL (6.0-8.3); Sodium 126 mmol/L (136-145)
[2019-10-16 05:59] LABS: Band 17 % (5-11); Lymphocytes 2 % (21-51); MDiff Complete? YES; Monocytes 7 % (0-10); Neutrophil 74 % (42-75); Platelet Count 103 thou/uL (130-400); Platelet Morphology Comment Appears Decreased
[2019-10-16] MEDS ORDERED: cefTRIAXone\\ROCEPHIN 2 GM VIAL ONE (06:22)
[2019-10-16] MEDS ORDERED: Azithromycin 500 MG VIAL ONE (06:57)
[2019-10-16 07:39] LABS: Bacteria/HPF None Seen HPF (None Seen); Bilirubin Negative (Negative); Blood, Urine Trace (Negative); Clarity Clear (Clear); Glucose, Urine (Dipstick) Greater than 1000 mg/dL (Negative); Leukocyte Negative Leu/uL (Negative); Nitrite Negative (Negative); Protein, Urine (Dipstick) 20 mg/dL (Neg-Trace); RBC/HPF 0-3 HPF (0-3); Squamous Epithelial None Seen HPF (0-3); WBC/HPF 0-3 HPF (0-3)
[2019-10-16] MEDS ORDERED: Acetaminophen 500 MG TAB ONE (08:04)
--- NOTE | 2019-10-16 08:41 | RAD ---
PORTABLE UPRIGHT FRONTAL CHEST RADIOGRAPH: 10/16/2019 HISTORY: Cough with vomiting and fever. COMPARISON: 10/13/2019 FINDINGS: Heart and mediastinal contours are stable. There is subtle hazy density in the left perihilar region and right perihilar region, not definitely seen on the prior exam. No lobar consolidation or alveolar edema. IMPRESSION: Subtle hazy increased density is noted in the bilateral perihilar regions, which may signify infectio us pneumonitis. Recommend follow-up PA and lateral imaging of the chest following treatment to document resolution. POS: [facility]
== END 2019-10-16 09:00 | disposition home or self-care (01) ==
LOC: ERS 04:21
DX: J18.9 Pneumonia, unspecified organism (principal); E11.9 Type 2 diabetes mellitus without complications; I10 Essential (primary) hypertension; F17.210 Nicotine dependence, cigarettes, uncomplicated; Z79.899 Other long term (current) drug therapy; Z79.84 Long term (current) use of oral hypoglycemic drugs
CPT/HCPCS: 36415; 71045; 80053; 81003; 81015; 83605; 83690; 84484; 85025; 87040; 93005; 96365; 96367; J0456; J0696; J2550

== ENCOUNTER 2022-06-02 20:15 | Emergency (ER) | payer OTHER ==
[2022-06-02] MEDS ORDERED: Boostrix 0.5 ML (Tdap) VIAL ONE (21:49)
[2022-06-02] MEDS ORDERED: HYDROcodone/Acetaminophen 10/325 mg Tablet ONE (22:55)
== END 2022-06-02 23:07 | disposition home or self-care (01) ==
LOC: ERS 20:15
DX: S93.402A Sprain of unspecified ligament of left ankle, initial encounter (principal); S90.32XA Contusion of left foot, initial encounter; S80.812A Abrasion, left lower leg, initial encounter; S60.512A Abrasion of left hand, initial encounter; E11.9 Type 2 diabetes mellitus without complications; I10 Essential (primary) hypertension; F17.210 Nicotine dependence, cigarettes, uncomplicated; V89.2XXA Person injured in unspecified motor-vehicle accident, traffic, initial encounter
CPT/HCPCS: 71045; 90471; 90715; 93005

== ENCOUNTER 2024-11-14 14:18 | Inpatient (IN) | payer BC, SELFPAY ==
[2024-11-14 15:30] LABS: Actual Bicarbonate (HCO3v) 21.1 mEq/L (22-28); Analyzer IN Cardio ER; Base Excess -2.2 mEq/L (-2.0 to +3.0); Calcium, Ionized (venous) 1.05 mmol/L (1.16-1.32); Chloride (VBG) 100 mmol/L (98-106); Hematocrit-VBG 29 % (42.0-52.0); Hemoglobin (Hb) 9.8 g/dL (13.1-17.2); Potassium (VBG) 3.98 mmol/L (3.70-5.30); Sodium 131 mmol/L (133-146); pH (venous) 7.455 (7.32-7.43)
[2024-11-14 15:31] LABS: #Basophils 0.04 10x3/uL (0.0-0.2); #Eosinophils Less than 0.03 10x3/uL (0.0-0.7); %Basophils 0.2 % (0.0-1.0); %Eosinophils 0.1 % (0.0-10.0); %Lymphocytes 2.6 % (21.0-51.0); %Monocytes 5.4 % (0.0-10.0); %Neutrophils 91.1 % (42.0-75.0); Hematocrit 25.4 % (42.0-52.0); Hemoglobin 9.2 g/dL (14.0-18.0); Mean Corpuscular HGB CONC 36.2 g/dL (32.0-36.0); Mean Corpuscular Hemoglobin 30.7 pg (27.0-31.0); Mean Corpuscular Volume 84.7 fL (78.0-98.0); Mean Platelet Volume 9.5 fL (7.4-10.4); Platelet Count 146 10x3/uL (130-400); RBC Distribution Width 14.8 % (11.5-14.5)
[2024-11-14 15:46] LABS: ALT (SGPT) 30 U/L (8-55); AST (SGOT) 26 U/L (5-34); Alkaline Phosphatase 133 U/L (40-110); Anion Gap 14 mmol/L (10-20); BUN (Urea Nitrogen) 19 mg/dL (8.4-25.7); Bilirubin, Total 0.9 mg/dL (0.2-1.2); Calc. Creatinine Clearance 0 mL/min (70-130); Calcium 7.9 mg/dL (7.8-10.44); Carbon Dioxide 20 mmol/L (22-29); Chloride 101 mmol/L (98-107); Estimated GFR 80; Glucose 323 mg/dL (70-105); Lipase 13 U/L (8-78); Magnesium 1.6 mg/dL (1.6-2.6); Phosphorus 2.6 mg/dL (2.3-4.7); Sodium 131 mmol/L (136-145)
[2024-11-14 15:52] LABS: Troponin I Less than 0.010 ng/mL (< 0.028)
[2024-11-14] MEDS ORDERED: Piperacillin/Tazobactam 3.375 GM VIAL ONE (15:54)
[2024-11-14] MEDS ORDERED: Senokot S 8.6-50 MG TAB PO PRN (17:35)
[2024-11-14] MEDS ORDERED: Glucagon 1 MG/ML KIT IM PRN (17:51)
[2024-11-14] MEDS ORDERED: Dextrose 5% in Water 1,000 ML IV PRN (17:51)
[2024-11-14] MEDS ORDERED: Dextrose 50% Abboject 50 ML SYRINGE SLOW IVP PRN (17:51)
[2024-11-14 18:22] LABS: Bacteria/HPF None Seen HPF (None Seen); Bilirubin Negative (Negative); Blood, Urine Negative (Negative); CAUTI Indications for Culture Immunosuppressed; Clarity Clear (Clear); Glucose, Urine (Dipstick) Greater than 1000 mg/dL (Negative); Ketone, Urine Negative (Negative); Leukocyte Negative Leu/uL (Negative); Nitrite Negative (Negative); Protein, Urine (Dipstick) 20 mg/dL (Neg-Trace); RBC/HPF 0-3 HPF (0-3); Specific Gravity, Urine 1.033 (1.002-1.036); Squamous Epithelial 0-3 HPF (0-3); Urobilinogen Normal mg/dL (Less than 2); WBC/HPF 0-3 HPF (0-3); pH, Urine 5.5 (5.0-9.0)
[2024-11-14 18:24] LABS: Urine Culture Reflex Yes Yes
[2024-11-14 18:50] VITALS: BMI 20.5
[2024-11-14] MEDS: Vancomycin (BATCH) 1.5 GM in Premix 1 BAG IVPB SCH (20:39)
[2024-11-14] MEDS: Piperacillin/Tazobactam 3.375 GM in Sodium Chloride 0.9% 100 ML IVPB SCH (20:41)
[2024-11-14] MEDS: Sodium Chloride 0.9% 1,000 ML IV SCH (20:42)
[2024-11-14] MEDS: Famotidine 20 MG TAB PO SCH (20:51)
[2024-11-14] MEDS: traMADol HCl 50 MG TAB PO PRN (20:56)
[2024-11-15 05:01] LABS: #Basophils Less than 0.03 10x3/uL (0.0-0.2); %Basophils 0.3 % (0.0-1.0); %Eosinophils 0.7 % (0.0-10.0); %Monocytes 6.2 % (0.0-10.0); %Neutrophils 85.5 % (42.0-75.0); Hematocrit 22.3 % (42.0-52.0); Hemoglobin 7.8 g/dL (14.0-18.0); Mean Corpuscular Volume 88.5 fL (78.0-98.0); Mean Platelet Volume 9.9 fL (7.4-10.4); Platelet Count 113 10x3/uL (130-400); RBC Distribution Width 15.6 % (11.5-14.5); Red Blood Cell (RBC) Count 2.52 mill/uL (4.70-6.10)
[2024-11-15 05:22] LABS: Anion Gap 8 mmol/L (10-20); BUN (Urea Nitrogen) 16 mg/dL (8.4-25.7); Calc. Creatinine Clearance 82 mL/min (70-130); Calcium 7.5 mg/dL (7.8-10.44); Carbon Dioxide 21 mmol/L (22-29); Chloride 108 mmol/L (98-107); Estimated GFR 99; Glucose 318 mg/dL (70-105); Potassium 4.3 mmol/L (3.5-5.1); Sodium 133 mmol/L (136-145)
[2024-11-15 05:23] LABS: Vancomycin, Random 8.1 ug/mL (See Comment)
[2024-11-15] MEDS: Vancomycin 1 GM in Premix 1 BAG IVPB SCH (05:37)
[2024-11-15 08:47] LABS: Hemoglobin A1c 9.3 % (4.0-6.0)
[2024-11-15] MEDS: Insulin Glargine 30 UNITS/0.3 ML VIAL SC SCH (08:53)
[2024-11-15] MEDS: Enoxaparin 40 MG (0.4 mL) SYRINGE SC SCH (08:55)
[2024-11-15] MEDS ORDERED: Lorazepam 2 MG/ML VIAL IM PRN (10:58)
[2024-11-15] MEDS ORDERED: Lorazepam 1 MG TAB PO PRN (10:58)
[2024-11-15] MEDS ORDERED: Ondansetron ODT 4 MG TAB PO PRN (10:58)
[2024-11-15] MEDS ORDERED: Electrolyte Replacement Protocol 1 EACH FS SCH (11:00)
[2024-11-15] MEDS ORDERED: Electrolyte Replacement Protocol FS PRN (11:15)
[2024-11-15] MEDS: Lorazepam 1 MG TAB PO SCH (12:04)
[2024-11-15] MEDS: Folic Acid 1 MG TAB PO SCH (12:04)
[2024-11-15] MEDS: Multivit, Therapeutic 1 TAB PO SCH (12:05)
[2024-11-15] MEDS: Thiamine HCl 200 MG/2 ML VIAL SLOW IVP SCH (12:05)
[2024-11-15] MEDS: Insulin Lispro 100 UNIT/ML 10 ML VIAL SC PRN (12:11)
[2024-11-15] MEDS: Acetaminophen 325 MG TAB PO PRN (13:11)
[2024-11-15] MEDS: Magnesium 2 GM/50 ML(in water) 2 GM in Premix 1 BAG IVPB SCH (13:12)
[2024-11-15 14:04] VITALS: BMI 20.5
[2024-11-16 05:09] LABS: #Basophils Less than 0.03 10x3/uL (0.0-0.2); %Basophils 0.4 % (0.0-1.0); %Lymphocytes 14.6 % (21.0-51.0); %Monocytes 9.3 % (0.0-10.0); %Neutrophils 73.3 % (42.0-75.0); Hematocrit 21.4 % (42.0-52.0); Hemoglobin 7.5 g/dL (14.0-18.0); Mean Corpuscular Hemoglobin 30.9 pg (27.0-31.0); Mean Corpuscular Volume 88.1 fL (78.0-98.0); Mean Platelet Volume 9.7 fL (7.4-10.4); Platelet Count 103 10x3/uL (130-400); RBC Distribution Width 15.5 % (11.5-14.5); Red Blood Cell (RBC) Count 2.43 mill/uL (4.70-6.10)
[2024-11-16 05:30] LABS: Anion Gap 8 mmol/L (10-20); BUN (Urea Nitrogen) 16 mg/dL (8.4-25.7); Calc. Creatinine Clearance 99 mL/min (70-130); Calcium 7.2 mg/dL (7.8-10.44); Carbon Dioxide 18 mmol/L (22-29); Chloride 110 mmol/L (98-107); Estimated GFR 105; Glucose 262 mg/dL (70-105); Potassium 3.8 mmol/L (3.5-5.1); Sodium 132 mmol/L (136-145)
[2024-11-16] MEDS: Multivit, Therapeutic 1 TAB PO SCH (09:52)
[2024-11-16] MEDS: Folic Acid 1 MG TAB PO SCH (09:53)
[2024-11-16] MEDS ORDERED: Lorazepam 1 MG TAB PO PRN (10:58)
[2024-11-16] MEDS: Simethicone Chewable 80 MG TAB PO SCH (17:33)
[2024-11-16] MEDS: Saccharomyces boulardii 250 MG CAP PO SCH ×2 (17:33→20:31)
[2024-11-16] MEDS: VANCOMYCIN 1.25 GM/250 ML BAG 1.25 GM in Premix 1 BAG IVPB SCH (17:36)
[2024-11-16] MEDS: Insulin Glargine 30 UNITS/0.3 ML VIAL SC SCH (20:32)
[2024-11-16] MEDS: Insulin Lispro 100 UNIT/ML 10 ML VIAL SC PRN (20:35)
[2024-11-16] MEDS ORDERED: Dextrose 5% in Water 1,000 ML IV PRN (21:13)
[2024-11-16] MEDS ORDERED: Glucagon 1 MG/ML KIT IM PRN (21:13)
[2024-11-16] MEDS ORDERED: Dextrose 50% Abboject 50 ML SYRINGE SLOW IVP PRN (21:13)
[2024-11-17] MEDS: HYDROcodone/Acetaminophen 10/325 mg Tablet PO SCH (00:18)
[2024-11-17 04:18] LABS: #Basophils Less than 0.03 10x3/uL (0.0-0.2); %Basophils 0.4 % (0.0-1.0); %Lymphocytes 21.3 % (21.0-51.0); %Monocytes 11.8 % (0.0-10.0); %Neutrophils 63.1 % (42.0-75.0); Hematocrit 22.5 % (42.0-52.0); Hemoglobin 7.9 g/dL (14.0-18.0); Mean Corpuscular HGB CONC 35.1 g/dL (32.0-36.0); Mean Corpuscular Hemoglobin 30.4 pg (27.0-31.0); Mean Corpuscular Volume 86.5 fL (78.0-98.0); Mean Platelet Volume 9.8 fL (7.4-10.4); Platelet Count 126 10x3/uL (130-400); RBC Distribution Width 15.2 % (11.5-14.5)
[2024-11-17 04:33] LABS: Hemoglobin A1c 9.2 % (4.0-6.0)
[2024-11-17 04:36] LABS: Vancomycin, Random 13.7 ug/mL (See Comment)
[2024-11-17 04:38] LABS: ALT (SGPT) 25 U/L (8-55); AST (SGOT) 22 U/L (5-34); Albumin 2.3 g/dL (3.5-5.0); Alkaline Phosphatase 112 U/L (40-110); Bilirubin, Direct 0.2 mg/dL (0.1-0.3); Bilirubin, Total 0.3 mg/dL (0.2-1.2); Iron 13 ug/dL (65-175); Iron Binding Capacity, Total 214 mcg/dL (261-462); Protein, Total 5.1 g/dL (6.0-8.3)
[2024-11-17 04:40] LABS: Anion Gap 10 mmol/L (10-20); BUN (Urea Nitrogen) 15 mg/dL (8.4-25.7); Calc. Creatinine Clearance 97 mL/min (70-130); Calcium 7.5 mg/dL (7.8-10.44); Carbon Dioxide 19 mmol/L (22-29); Chloride 107 mmol/L (98-107); Estimated GFR 104; Glucose 176 mg/dL (70-105); Iron 14 ug/dL (65-175); Iron Binding Capacity, Total 214 mcg/dL (261-462); Potassium 3.7 mmol/L (3.5-5.1); Sodium 132 mmol/L (136-145)
[2024-11-17 05:01] LABS: Thyroid Stimulating Hormone 2.6215 uIU/mL (0.35-4.94)
[2024-11-17 06:01] LABS: Ferritin 41.07 ng/mL (22-322)
[2024-11-17] MEDS: Insulin Lispro 100 UNIT/ML 10 ML VIAL SC PRN (06:34)
[2024-11-17] MEDS ORDERED: Lorazepam 1 MG TAB PO PRN (10:58)
[2024-11-17] MEDS ORDERED: Lorazepam 0.5 MG TAB PO SCH (12:00)
[2024-11-17] MEDS: Sodium Ferric Gluconate 125 MG in Sodium Chloride 0.9% 100 ML IVPB SCH (12:23)
[2024-11-17] MEDS: cefTRIAXone\\ROCEPHIN 2 GM in Sodium Chloride 0.9% 100 ML IVPB SCH (13:30)
[2024-11-17] MEDS ORDERED: CEFAZOLIN 1 GM VIAL SLOW IVP SCH (14:00)
[2024-11-17] MEDS: Lactulose 20 GM (30 mL) UDCUP PO SCH ×2 (15:34→21:17)
[2024-11-17] MEDS: Docusate 100 MG CAP PO SCH ×2 (15:37→21:16)
[2024-11-17] MEDS: metroNIDAZOLE 500 MG TAB PO SCH (21:16)
[2024-11-18 05:28] LABS: #Basophils Less than 0.03 10x3/uL (0.0-0.2); %Basophils 0.5 % (0.0-1.0); %Eosinophils 2.3 % (0.0-10.0); %Lymphocytes 21.8 % (21.0-51.0); %Monocytes 15.3 % (0.0-10.0); %Neutrophils 59.6 % (42.0-75.0); Hematocrit 23.7 % (42.0-52.0); Hemoglobin 8.3 g/dL (14.0-18.0); Mean Corpuscular Hemoglobin 29.9 pg (27.0-31.0); Mean Corpuscular Volume 85.3 fL (78.0-98.0); Mean Platelet Volume 9.7 fL (7.4-10.4); Platelet Count 126 10x3/uL (130-400); RBC Distribution Width 15.3 % (11.5-14.5); Red Blood Cell (RBC) Count 2.78 mill/uL (4.70-6.10)
[2024-11-18 05:52] LABS: ALT (SGPT) 25 U/L (8-55); AST (SGOT) 24 U/L (5-34); Albumin 2.3 g/dL (3.5-5.0); Alkaline Phosphatase 117 U/L (40-110); Anion Gap 9 mmol/L (10-20); BUN (Urea Nitrogen) 13 mg/dL (8.4-25.7); Bilirubin, Total 0.4 mg/dL (0.2-1.2); Calc. Creatinine Clearance 96 mL/min (70-130); Calcium 7.7 mg/dL (7.8-10.44); Carbon Dioxide 21 mmol/L (22-29); Chloride 108 mmol/L (98-107); Estimated GFR 104; Globulin 2.9 g/dL (2.4-3.5); Glucose 142 mg/dL (70-105); Magnesium 1.7 mg/dL (1.6-2.6); Potassium 3.8 mmol/L (3.5-5.1); Protein, Total 5.2 g/dL (6.0-8.3); Sodium 134 mmol/L (136-145)
[2024-11-18] MEDS: Magnesium 2 GM/50 ML(in water) 2 GM in Premix 1 BAG IVPB SCH (08:54)
[2024-11-18] MEDS ORDERED: Thiamine 100 MG TAB PO SCH (09:00)
[2024-11-18] MEDS ORDERED: Lorazepam 0.5 MG TAB PO PRN (10:58)
[2024-11-18] MEDS: Spironolactone 25 MG TAB PO SCH (12:00)
[2024-11-18] MEDS: Furosemide 20 MG TAB PO SCH (12:01)
[2024-11-19 04:44] LABS: #Basophils Less than 0.03 10x3/uL (0.0-0.2); %Basophils 0.5 % (0.0-1.0); %Eosinophils 3.3 % (0.0-10.0); %Lymphocytes 23.5 % (21.0-51.0); %Monocytes 15.7 % (0.0-10.0); %Neutrophils 56.3 % (42.0-75.0); Hematocrit 23.5 % (42.0-52.0); Hemoglobin 8.3 g/dL (14.0-18.0); Mean Corpuscular HGB CONC 35.3 g/dL (32.0-36.0); Mean Corpuscular Hemoglobin 29.7 pg (27.0-31.0); Mean Corpuscular Volume 84.2 fL (78.0-98.0); Mean Platelet Volume 9.6 fL (7.4-10.4); Platelet Count 141 10x3/uL (130-400); RBC Distribution Width 15.3 % (11.5-14.5); Red Blood Cell (RBC) Count 2.79 mill/uL (4.70-6.10)
[2024-11-19 05:48] LABS: Anion Gap 10 mmol/L (10-20); BUN (Urea Nitrogen) 11 mg/dL (8.4-25.7); Calc. Creatinine Clearance 96 mL/min (70-130); Calcium 7.8 mg/dL (7.8-10.44); Carbon Dioxide 21 mmol/L (22-29); Chloride 106 mmol/L (98-107); Estimated GFR 104; Glucose 178 mg/dL (70-105); Magnesium 1.8 mg/dL (1.6-2.6); Sodium 133 mmol/L (136-145)
[2024-11-19] MEDS: Magnesium 2 GM/50 ML(in water) 2 GM in Premix 1 BAG IVPB SCH (06:25)
[2024-11-19] MEDS ORDERED: Spironolactone 25 MG TAB PO SCH (09:00)
[2024-11-19] MEDS: Mineral Oil ENEMA PR SCH (10:34)
[2024-11-19] MEDS: Spironolactone 25 MG TAB PO SCH (10:36)
[2024-11-19] MEDS: Furosemide 20 MG TAB PO SCH (10:37)
[2024-11-19] MEDS ORDERED: Sodium Bicarbonate 2.5 MEQ/5 ML SDV ONE (16:00)
[2024-11-19] MEDS ORDERED: Lidocaine 1% PF 5 ML VIAL ONE (16:00)
[2024-11-19] MEDS: Carvedilol 6.25 MG TAB PO SCH ×2 (16:09→18:12)
[2024-11-20 06:06] LABS: Anion Gap 10 mmol/L (10-20); BUN (Urea Nitrogen) 12 mg/dL (8.4-25.7); Calc. Creatinine Clearance 100 mL/min (70-130); Calcium 8.1 mg/dL (7.8-10.44); Carbon Dioxide 24 mmol/L (22-29); Chloride 107 mmol/L (98-107); Estimated GFR 105; Glucose 110 mg/dL (70-105); Magnesium 1.9 mg/dL (1.6-2.6); Potassium 3.8 mmol/L (3.5-5.1); Sodium 137 mmol/L (136-145)
[2024-11-20 06:10] LABS: #Basophils Less than 0.03 10x3/uL (0.0-0.2); %Basophils 0.4 % (0.0-1.0); %Eosinophils 2.9 % (0.0-10.0); %Monocytes 12.8 % (0.0-10.0); %Neutrophils 64.3 % (42.0-75.0); Hematocrit 25.3 % (42.0-52.0); Hemoglobin 8.8 g/dL (14.0-18.0); Mean Corpuscular HGB CONC 34.8 g/dL (32.0-36.0); Mean Corpuscular Hemoglobin 29.8 pg (27.0-31.0); Mean Corpuscular Volume 85.8 fL (78.0-98.0); Mean Platelet Volume 9.4 fL (7.4-10.4); Platelet Count 147 10x3/uL (130-400); RBC Distribution Width 15.9 % (11.5-14.5); Red Blood Cell (RBC) Count 2.95 mill/uL (4.70-6.10)
[2024-11-20] MEDS: Magnesium 2 GM/50 ML(in water) 2 GM in Premix 1 BAG IVPB SCH (09:01)
[2024-11-21 05:12] LABS: #Basophils Less than 0.03 10x3/uL (0.0-0.2); %Basophils 0.4 % (0.0-1.0); %Eosinophils 3.5 % (0.0-10.0); %Monocytes 10.2 % (0.0-10.0); %Neutrophils 61.3 % (42.0-75.0); Hematocrit 26.2 % (42.0-52.0); Hemoglobin 8.8 g/dL (14.0-18.0); Mean Corpuscular HGB CONC 33.6 g/dL (32.0-36.0); Mean Corpuscular Hemoglobin 30.2 pg (27.0-31.0); Mean Platelet Volume 9.5 fL (7.4-10.4); Platelet Count 146 10x3/uL (130-400); RBC Distribution Width 16.7 % (11.5-14.5); Red Blood Cell (RBC) Count 2.91 mill/uL (4.70-6.10)
[2024-11-21 06:05] LABS: Anion Gap 9 mmol/L (10-20); BUN (Urea Nitrogen) 12 mg/dL (8.4-25.7); Calc. Creatinine Clearance 100 mL/min (70-130); Carbon Dioxide 24 mmol/L (22-29); Chloride 109 mmol/L (98-107); Estimated GFR 105; Glucose 128 mg/dL (70-105); Magnesium 1.9 mg/dL (1.6-2.6); Sodium 138 mmol/L (136-145)
[2024-11-21] MEDS: Magnesium 2 GM/50 ML(in water) 2 GM in Premix 1 BAG IVPB SCH (09:20)
[2024-11-21] MEDS ORDERED: Spironolactone 25 MG TAB PO SCH (10:37)
[2024-11-21] MEDS ORDERED: Furosemide 20 MG TAB PO SCH (10:37)
[2024-11-21] MEDS: Furosemide 40 MG TAB PO SCH (12:37)
[2024-11-21] MEDS: Spironolactone 100 MG TAB PO SCH (12:37)
[2024-11-22 05:21] LABS: #Basophils 0.03 10x3/uL (0.0-0.2); %Basophils 0.4 % (0.0-1.0); %Eosinophils 3.2 % (0.0-10.0); %Lymphocytes 26.2 % (21.0-51.0); %Monocytes 10.2 % (0.0-10.0); %Neutrophils 59.2 % (42.0-75.0); Hematocrit 26.3 % (42.0-52.0); Mean Corpuscular HGB CONC 34.2 g/dL (32.0-36.0); Mean Corpuscular Hemoglobin 29.4 pg (27.0-31.0); Mean Corpuscular Volume 85.9 fL (78.0-98.0); Mean Platelet Volume 9.1 fL (7.4-10.4); Platelet Count 184 10x3/uL (130-400); RBC Distribution Width 17.2 % (11.5-14.5); Red Blood Cell (RBC) Count 3.06 mill/uL (4.70-6.10)
[2024-11-22 05:49] LABS: Anion Gap 11 mmol/L (10-20); BUN (Urea Nitrogen) 11 mg/dL (8.4-25.7); Calc. Creatinine Clearance 89 mL/min (70-130); Calcium 7.8 mg/dL (7.8-10.44); Carbon Dioxide 24 mmol/L (22-29); Chloride 105 mmol/L (98-107); Estimated GFR 102; Glucose 79 mg/dL (70-105); Potassium 3.8 mmol/L (3.5-5.1); Sodium 136 mmol/L (136-145)
[2024-11-22] MEDS: Spironolactone 100 MG TAB PO SCH (08:07)
[2024-11-22] MEDS: Furosemide 40 MG TAB PO SCH (08:08)
[2024-11-22 08:52] LABS: INR-International Normal Ratio 1.1; PTT 32.1 sec (22.9-36.1); Prothrombin Time 14.4 sec (12.0-14.7)
[2024-11-22] MEDS ORDERED: Lidocaine 1% PF 5 ML VIAL ONE (08:56)
[2024-11-22] MEDS ORDERED: Sodium Bicarbonate 2.5 MEQ/5 ML SDV ONE (08:57)
[2024-11-22] MEDS ORDERED: Spironolactone 25 MG TAB PO SCH (09:00)
[2024-11-23 16:09] VITALS: BP 131/78; TEMP 97.6
== END 2024-11-23 17:50 | disposition home or self-care (01) | DRG 872 ==
LOC: ERS 14:18 → 2NO 16:52
PROVIDERS: ADMIT Internal Medicine; ATTEND Internal Medicine
PROC: 3E03329 Introduction of Other Anti-infective into Peripheral Vein, Percutaneous Approach (ICD-10-PCS; 2024-11-14)
PROC: 02HV33Z Insertion of Infusion Device into Superior Vena Cava, Percutaneous Approach (ICD-10-PCS; 2024-11-19)
PROC: B5181ZA Fluoroscopy of Superior Vena Cava using Low Osmolar Contrast, Guidance (ICD-10-PCS; 2024-11-19)
PROC: 0W9G3ZZ Drainage of Peritoneal Cavity, Percutaneous Approach (ICD-10-PCS; principal; 2024-11-22)
DX: A41.9 Sepsis, unspecified organism (principal); M86.9 Osteomyelitis, unspecified; E87.1 Hypo-osmolality and hyponatremia; K76.6 Portal hypertension; I47.10 Supraventricular tachycardia, unspecified; E11.69 Type 2 diabetes mellitus with other specified complication; I10 Essential (primary) hypertension; Z89.511 Acquired absence of right leg below knee; Z79.4 Long term (current) use of insulin; Z79.899 Other long term (current) drug therapy; E11.65 Type 2 diabetes mellitus with hyperglycemia; D69.6 Thrombocytopenia, unspecified; E11.40 Type 2 diabetes mellitus with diabetic neuropathy, unspecified; B19.20 Unspecified viral hepatitis C without hepatic coma; K70.31 Alcoholic cirrhosis of liver with ascites; D50.9 Iron deficiency anemia, unspecified; K59.00 Constipation, unspecified
CPT/HCPCS: 36415; 36416; 36572; 49083; 71045; 74018; 74176; 76705; 80048; 80053; 80076; 80202; 81001; 82010; 82042; 82728; 82805; 83036; 83540; 83550; 83605; 83690; 83735; 84100; 84157; 84443; 84484; 85025; 85610; 85730; 87040; 87070; 87077; 87086; 87186; 87205; 93005; 93010; 93306; 96361; 96365; 96366; 96368; 97139; C1751; J0696; J1650; J1815; J2543; J2916; J3370; J3411; J3475; J7030

== ENCOUNTER 2024-12-13 08:26 | Emergency (ER) | payer BC ==
[2024-12-13 09:38] LABS: #Basophils Less than 0.03 10x3/uL (0.0-0.2); %Basophils 0.5 % (0.0-1.0); %Eosinophils 2.9 % (0.0-10.0); %Monocytes 11.7 % (0.0-10.0); %Neutrophils 63.6 % (42.0-75.0); Hematocrit 24.6 % (42.0-52.0); Hemoglobin 8.2 g/dL (14.0-18.0); Mean Corpuscular HGB CONC 33.3 g/dL (32.0-36.0); Mean Corpuscular Hemoglobin 29.4 pg (27.0-31.0); Mean Corpuscular Volume 88.2 fL (78.0-98.0); Mean Platelet Volume 10.6 fL (7.4-10.4); Platelet Count 109 10x3/uL (130-400); RBC Distribution Width 15.1 % (11.5-14.5); Red Blood Cell (RBC) Count 2.79 mill/uL (4.70-6.10)
[2024-12-13 09:56] LABS: Troponin I Less than 0.010 ng/mL (< 0.028)
[2024-12-13 10:09] LABS: ALT (SGPT) 31 U/L (8-55); AST (SGOT) 32 U/L (5-34); Albumin 2.7 g/dL (3.5-5.0); Alkaline Phosphatase 140 U/L (40-110); Anion Gap 9 mmol/L (10-20); BUN (Urea Nitrogen) 31 mg/dL (8.4-25.7); Bilirubin, Total 0.3 mg/dL (0.2-1.2); Calc. Creatinine Clearance 0 mL/min (70-130); Calcium 8.4 mg/dL (7.8-10.44); Carbon Dioxide 24 mmol/L (22-29); Chloride 104 mmol/L (98-107); Estimated GFR 106; Glucose 412 mg/dL (70-105); Potassium 4.9 mmol/L (3.5-5.1); Protein, Total 5.7 g/dL (6.0-8.3); Sodium 132 mmol/L (136-145)
[2024-12-13 10:23] LABS: Platelet Adequacy Comment Appears Decreased
[2024-12-13] MEDS ORDERED: Insulin Regular, Human 100 UNIT/ML 10 ML VIAL ONE ×2 (10:23→10:30)
[2024-12-13] MEDS ORDERED: Sodium Chloride 0.9% 100 ML ONE (12:53)
[2024-12-13] MEDS ORDERED: cefTRIAXone (ROCEPHIN) 2 GM VIAL ONE (12:53)
[2024-12-13] MEDS ORDERED: Lidocaine 1% PF 5 ML VIAL ONE (13:21)
== END 2024-12-13 14:48 | disposition home or self-care (01) ==
LOC: ERS 08:26
DX: R18.8 Other ascites (principal); E11.65 Type 2 diabetes mellitus with hyperglycemia; I10 Essential (primary) hypertension; Z86.19 Personal history of other infectious and parasitic diseases; Z87.891 Personal history of nicotine dependence; Z89.511 Acquired absence of right leg below knee
CPT/HCPCS: 36415; 36416; 49083; 80053; 84484; 85025; 96365; J0696; J1815